=== PATIENT | female | born 2005 | race Caucasian/White ===

== ENCOUNTER 2024-08-18 23:54 | Emergency (ER) | payer MEDICAID ==
[~2024-08-18] VITALS: Ht 165.1 cm; Wt 63.0 kg
[2024-08-19 00:15] VITALS: TEMP 36.7; O2SAT 99
[2024-08-19 01:29] LABS: BASOPHILS % 0.8 % (0.0-2.0); EOSINOPHILS % 2.5 % (0.0-5.0); HEMATOCRIT. 35.3 % (36.0-48.0); MEAN CORPUSCULAR HEMOGLOBIN 33.1 pg (28.0-32.0); MEAN CORPUSCULAR HGB CONC 34.1 g/dL (31.0-37.0); MEAN CORPUSCULAR VOLUME 97.1 fL (81.0-99.0); MEAN PLATELET VOLUME 8.8 fl (7.4-10.4); MONOCYTES % 6.9 % (2.0-8.0); NEUTROPHILS % 65.8 % (40.0-76.0); PLATELET 346 x1000/uL (130-400); RED BLOOD CELL COUNT 3.64 mill/uL (4.2-5.4); WHITE BLOOD COUNT 7.8 x1000/uL (4.5-11.0)
[2024-08-19 01:37] LABS: CARBON DIOXIDE 25 mEq/L (21-32); CHLORIDE 105 mEq/L (98-107); POTASSIUM 3.6 mEq/L (3.5-5.1); SODIUM 139 mEq/L (136-145)
[2024-08-19 01:38] LABS: CALCIUM 9.5 mg/dL (8.7-10.4)
[2024-08-19 01:42] LABS: CREATININE 0.6 mg/dL (0.6-1.0); GLUCOSE 88 mg/dL (70-105)
[2024-08-19 01:43] LABS: UREA NITROGEN BLOOD 8 mg/dL (9-23)
[2024-08-19 01:45] LABS: B-HCG QUANTITATIVE 302 mIU/mL (<3)
[2024-08-19 02:35] LABS: HCG SCREEN POSITIVE
[2024-08-19 03:11] VITALS: BP 125/75; PULSE 78; RESP 16; O2SAT 99
== END 2024-08-19 03:13 | disposition home or self-care (01) ==
LOC: ER 23:54
DX: N93.9 Abnormal uterine and vaginal bleeding, unspecified (principal); Z88.1 Allergy status to other antibiotic agents
CPT/HCPCS: 36415; 76830; 76856; 80048; 84702; 84703; 85025; 86850; 86900; 99284